=== PATIENT | female | born 1950 | race Caucasian/White ===

== ENCOUNTER 2023-07-18 17:24 | Emergency (ER) | payer MEDICARE, BC ==
[2023-07-18] MEDS ORDERED: CYCLOBENZAPRINE 10 MG TABLET PO STA (17:47)
--- NOTE | 2023-07-18 17:48 | ED Physician Documentation ---
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 She has had on and off left shoulder pains over the last few days which was much more severe today and worse if she lifts her arm. She is right-handed. No fevers. No primary neck pain. No numbness in the left arm. PD PAST MEDICAL HISTORY - Past Medical History Past Medical History: Yes BUTTERMAKER CONTINUOUS CHURN: Breast cancer Other Past Medical History: bladder cancer, left bicep sarcroma - Past Surgical History Past Surgical History: Yes /BUTTERMAKER CONTINUOUS CHURN: Other - Present Medications Home Medications: Ambulatory Orders Medication Instructions Recorded Confirmed Cyclobenzaprine [Flexeril] 10 mg PO TID PRN #20 tablet 07/18/23 - Allergies Allergies/Adverse Reactions: Allergies Allergy/AdvReac Type Severity Reaction Status Date / Time Iodinated Contrast Media Allergy Itching Verified 07/18/23 17:34 - Social History Does the pt smoke?: No Smoking Status: Never smoker Does the pt drink ETOH?: Yes ETOH Use: Wine Does the pt have substance abuse?: No - Immunizations Immunizations are current?: No PD ED PE NORMAL - Vitals Vital signs reviewed: Yes - General General: Alert and oriented X 3, No acute distress - HEENT HEENT: PERRL, EOMI - Neck Neck: Supple, no meningeal sign, No bony TTP - Extremities Extremities: Other (May be some mild tenderness over the left glenohumeral joint. The neck and sternocleidomastoid musculature is nontender. No shingles rash. She has normal sensation throughout the left upper extremity. She can only abduct to about 90 degrees and then has pain. Internal/external rotation is painl) - Neuro Neuro: Alert and oriented X 3, Normal speech - Psych Psych: Normal mood, Normal affect Results - Vitals Vitals: Vital Signs - 24 hr 07/18/23 07/18/23 17:28 18:35 Temperature 36.5 C Heart Rate 92 71 Respiratory 16 12 Rate Blood Pressure 194/97 H 171/81 H O2 Saturation 97 Oxygen O2 Source Room air - Rads (name of study) X-ray left shoulder showing postoperative and degenerative changes without acute findings. Relevant Findings:: Final report received, EMP independent interpretation of test PD Medical Decision Making - ED course ED course: She presents with what seems like muscle spasm to the left shoulder. Relevant x-ray was negative and after the treatment with 10 mg of p.o. Flexeril she was feeling much better. Departure - Departure Disposition: 01 Home, Self Care Clinical Impression: Muscle spasm of left shoulder Condition: Good Record reviewed to determine appropriate education?: Yes Instructions: ED Spasm Back No Trauma Prescriptions: Cyclobenzaprine [Flexeril] 10 mg PO TID PRN #20 tablet PRN Reason: Spasms Comments: I sent your prescription electronically to the [facility] in [place]. Reasonable for you to follow-up with your physical therapist and primary care physicians for further evaluation and treatment. Do not drink or drive while taking the muscle relaxer. To which you can add Tylenol and/or ibuprofen per package instructions. Forms: PCP List
--- NOTE | 2023-07-18 18:47 | XRAY Report ---
PROCEDURE: Shoulder 2+V LT INDICATIONS: shoulder inj TECHNIQUE: 3 views of the shoulder were acquired. COMPARISON: None. FINDINGS: Bones: No fractures or dislocations. No suspicious bony lesions. Visualized ribs appear intact. Degenerative changes are seen, particularly involving the acromioclavicular joint. Soft tissues: Calcific tendinopathy can be seen. Left axillary clips are seen. The visualized lungs are within normal limits. IMPRESSION: No acute abnormality is seen by plain film. Underlying degenerative and postoperative changes can be seen. Reviewed by: Abel Doyle MD on 07/18/2023 5:46 PM [place] Approved by: Abel Doyle MD on 07/18/2023 5:46 PM [place] Station ID: [id number]
[2023-07-18] MEDS ORDERED: CYCLOBENZAPRINE 10 MG Prepack 2 PO STA (19:02)
[2023-07-18 19:20] VITALS: BP 180/76; O2SAT 98
== END 2023-07-18 19:17 | disposition home or self-care (01) ==
LOC: ED 17:24
DX: M25.512 Pain in left shoulder (principal); M62.838 Other muscle spasm
CPT/HCPCS: 73030; 99283; A9270

== ENCOUNTER 2023-12-08 08:00 | Outpatient (CLI) | payer MEDICARE, BC ==
--- NOTE | 2023-12-08 16:22 | XRAY Report ---
PROCEDURE: Chest 2V INDICATIONS: WHEEZING TECHNIQUE: 2 views of the chest were acquired. COMPARISON: None. FINDINGS: Surgical changes and devices: None. Lungs and pleura: No pleural effusions or pneumothorax. Lungs are clear. Mediastinum: Mediastinal contours appear normal. Heart size is normal. Bones and chest wall: No suspicious bony lesions. Overlying soft tissues appear unremarkable. IMPRESSION: No acute cardiopulmonary process. Reviewed by: Phillip Santizo MD on 12/08/2023 4:20 PM PDT Approved by: Phillip Santizo MD on 12/08/2023 4:20 PM PDT Station ID: [id number]
== END 2023-12-08 23:59 | disposition home or self-care (01) ==
LOC: DI.S 08:00
PROVIDERS: ATTEND Emergency Medicine
DX: R06.2 Wheezing (principal)